=== PATIENT | male | born 1950 | race Caucasian/White ===

== ENCOUNTER 2016-10-13 21:08 | Inpatient (IN) | payer OTHER ==
[~2016-10-13] VITALS: Ht 182.9 cm; Wt 68.0 kg
--- NOTE | ~2016-10-13 | CNG ---
[facility] [place] [address] CYTO-NONGYN REPORT PROCEDURE Name: VISHAL BURKETT Room #: 315-P DIS IN M.R.#: [id number] Admission: 10/13/16 Date of : 54 Discharge: 10/16/16 Report #: [id number] Path Case #: [id number] CYTOPATHOLOGY REPORT COLLECTION DATE: 10/15/2016 RECEIVED DATE: 10/15/2016 SUBMITTING PHYS: Dr. Robert Patel OTHER PHYS: Dr. Amarjit John CLINICAL HISTORY: Right lung mass diagnosed yesterday. See also [id number]. SPECIMEN(S) RECEIVED: A.Bronchial brushing, RUL B.Bronchial brush rinse, RUL C. TBNA , lymph node 4R D.Bronchoalveolar lavage, RUL * * * * * * * * * * * * FINAL DIAGNOSIS: A. Bronchial brushing, RUL: - POSITIVE FOR MALIGNANCY. - SMALL CELL CARCINOMA. B. Bronchial brush rinse, RUL: - POSITIVE FOR MALIGNANCY. - SMALL CELL CARCINOMA. C. TBNA, lymph node 4R: - POSITIVE FOR MALIGNANCY. - SMALL CELL CARCINOMA. - NO CONVINCING BACKGROUND LYMPHOID TISSUE PRESENT. (SEE COMMENT) D. Bronchoalveolar lavage, RUL: - SUSPICIOUS FOR MALIGNANCY. - Clusters of highly atypical cells suspicious for small cell carcinoma. COMMENT: Properly controlled immunohistochemical stains are performed on the cell block of specimen C. (Block C1) AE1/AE3: tumor cells have perinuclear dot-like reactivity TTF-1: tumor cells reactive Synaptophysin: tumor cells reactive Within specimen C, no convincing background lymphoid tissue is present to confirm the presence of lymph node. Clinical, radiographic, and bronchoscopic correlation is required. Servicer slides of specimens A and C are co-reviewed with Dr. Annmarie De Paz. Please see also the bronchial biopsy showing small cell carcinoma ([id number]). The case is discussed with Dr. Jones [address] [address] CYTO-NONGYN REPORT PROCEDURE Name: VISHAL BURKETT Room #: 315-P [facility]#: [id number] Admission: 10/13/16 Date of : 54 Discharge: 10/16/16 Report #: [id number] Path Case #: [id number] Patel on 10/17/16 at approximately 12:30 PM. (CLW:; d/t: 10/17/16) PATHOLOGIST: Desi Perera M.D. REPORT ELECTRONICALLY SIGNED BY: Desi Perera M.D. DATE/TIME: 10/17/2016 16:15 * * * * * * * * * * * * GROSS PATHOLOGY: A. Bronchial brushing, RUL: The specimen is labeled "Vishal Burkett" and consists of four fixed slides. B. Bronchial brush rinse, RUL: The specimen is labeled "Aurelio, Vishal" and consists of a brush tip in fixative. One ThinPrep slide was prepared. C. TBNA , lymph node 4R: The specimen is labeled "Aurelio, Vishal" and consists of two fixed slides. Received by the Cytology Department is 40 ml of dark brown fluid in formalin a cell block only was prepared. (clt 10.16.2016) D. Bronchoalveolar lavage, RUL: The specimen is submitted unfixed, labeled "Aurelio, Vishal". Received by the Cytology Department is ten mL of cloudy red fluid. One ThinPrep slide was prepared. (clt 10.15.2016) DIESEL ENGINE SPECIALIST(S): LIANNA Wallace(ASCP) INITIAL CPT CODE(S): A; 38931 B; 31851 C; 32568, 53695, 14908, 69663, 95008 D; 43447 Professional services performed by [facility] at [facility] [address], [place] [address] Technical services performed by [facility] at [address] [place] [address]., [address], [place] [address]. [facility] [address] [place] [address], [address] [place] [address] PHONE: [phone] DIRECTOR: Tobias Pavon M.D. * * * END OF REPORT * * *
--- NOTE | ~2016-10-13 | EKG ---
[address] [address] ELECTROCARDIOGRAM REPORT Name: ALYSSIA BURKETT Room #: 315-P ADM IN M.R.#: [id number] Admission: 10/13/16 Attend Phys: Mustapha Bentley Discharge: Date of : 54 Report #: [id number] THIS REPORT FOR: //name// [facility] Test Date: 2016-10-14 Test Time: 11:31:30 Pat Name: ALYSSIA BURKETT Department: Room: 315 Gender: M House Mother: abrahan : 1950 Requested By: Adriane Frey Order Number: [id number] MD: Rc Pinto Measurements Intervals [place] Rate: 68 P: 51 RI: 145 QRS: -8 QRSD: 86 T: 58 QT: 396 QTc: 422 Interpretive Statements Sinus rhythm Probable left atrial enlargement Probable left ventricular hypertrophy No previous ECG available for comparison Electronically Signed On 10-14-2016 20:26:23 CDT by Rc Pinto [email or web address] <ELECTRONICALLY SIGNED> By: Rc Pinto MD 10/14/166 1131 30 Rc Pinto MD /CHEY
--- NOTE | ~2016-10-13 | HC ---
[facility] [place] [address] CONSULTATION Name: ALYSSIA BURKETT Room #: 315-P [facility] IN M.R.#: [id number] Admission: 10/13/16 Attend Phys: Amarjit John MD Discharge: 10/16/16 Date of : 54 Report #: [id number] THIS REPORT FOR: //name// CC: Amarjit John Primary Care Provider CHEIKH POPE DATE OF SERVICE: 10/14/2016 PULMONARY CONSULTATION REASON FOR CONSULTATION: Lung mass. CHIEF COMPLAINT: Chest pain. HISTORY OF PRESENT ILLNESS: Our group was asked to see the patient in consultation while hospitalized at [facility]. A pleasant 66-year-old male without any past pulmonary history, other than ongoing tobacco use, who presented to [facility] about one week ago with complaints of right-sided chest pain as well as some cough that had been nonproductive. Seen in the emergency department there and was found to have an abnormal exam and chest x-ray was thought to have pneumonia, placed on antibiotics and instructed to follow up with his primary care provider. Upon seeing his primary care provider, the patient had not been improving and what appeared to be a mediastinal mass found on the x-ray prompted an order of a CT scan of the chest. This was done on October 12, which revealed a mediastinal right upper lobe mass. The patient had ongoing chest pain, some weight loss of about 10 pounds over the last month and this prompted the patient to call his primary care provider because of poor pain control. He was instructed to present for admission and was seen in our emergency department. An x-ray confirmed a mediastinal mass, subsequently admitted for further evaluation and management of a severe chest pain. ALLERGIES: Include TRAMADOL, PROZAC and CHANTIX. PAST MEDICAL HISTORY: 1. History of hyperlipidemia. 2. Gout. 3. History of severe prostatitis, undergoing cystoscopy several years ago. 4. Chronic lower back pain. 5. Tobacco abuse. PAST SURGICAL HISTORY: Other than cystoscopy, none. OUTPATIENT MEDICATIONS: Include allopurinol, Protonix, atorvastatin, Ambien, aspirin and hydrocodone. [facility] [address] [place] [address] CONSULTATION Name: ALYSSIA BURKETT Room #: 315-P [facility] IN M.R.#: [id number] Admission: 10/13/16 Attend Phys: Amarjit John MD Discharge: 10/16/16 Date of : 54 Report #: [id number] SOCIAL HISTORY: Active smoker, smoking about a pack and a half a day. Currently retired; previously had worked on farms, doing farm work. No significant organic exposures in this regard. FAMILY HISTORY: Significant for a strong history of coronary artery disease. REVIEW OF SYSTEMS: CONSTITUTIONAL: Some mild weight loss of about 10 pounds over the last month and some occasional sweats. ENT: No upper respiratory congestion, rhinorrhea or dysphagia. CARDIOVASCULAR: Chest pain as described, mostly right-sided and in the lower chest. GASTROINTESTINAL: No nausea, vomiting, diarrhea, constipation or abdominal pain. GENITOURINARY: No dysuria, no frequency. History of prostatitis several years ago. INTEGUMENT: Denies any new rash. MUSCULOSKELETAL: No new joint pains or swelling. PHYSICAL EXAMINATION: VITAL SIGNS: Afebrile. Pulse 80s, respiratory rate 20, blood pressure 172/86 and oxygen saturation 95% on room air. GENERAL: This is a pleasant middle-aged male in no apparent distress. ENT: Edentulous upper palate. Mallampati 2 airway, no thrush. NECK: Supple. No lymphadenopathy. LUNGS: Diminished on the right with focal wheezes noted on the right. Respirations do not appear labored at rest. CARDIOVASCULAR: Heart regular. No murmurs noted. ABDOMEN: Soft, nontender. No masses, no hepatosplenomegaly. EXTREMITIES: Without edema. LABORATORY DATA: Sodium 143, potassium 3.4, chloride 101, bicarbonate 34, BUN 12, creatinine 0.7 and glucose 124. INR is 1.1. White blood cell count 14,000, hemoglobin 15, hematocrit 46 and platelet count 225,000. CT scan of the chest was reviewed, which revealed a very large mediastinal mass extending from the, what appears to be, thoracic inlet, all the way down to the right hilar area, involving the right upper lobe bronchus, which appears to be abruptly cut off by this mass. Pulmonary artery may be involved on the right side as well. No significant subcarinal or left hilar nodes were noted on this exam. Review of the right lower ribs does not reveal lesion that I can see either. Liver does not appear to have any lesions as well. There does appear to be some gallbladder wall thickening on CT, although not fully visualized. IMPRESSION: Mediastinal mass with right hilar involvement, probable right upper lobe airway involvement. This should be very minimal to bronchoscopy. However, [facility] [address] [place] [address] CONSULTATION Name: ALYSSIA BURKETT Room #: 315-P DIS IN Xavier.#: [id number] Admission: 10/13/16 Attend Phys: Amarjit John MD Discharge: 10/16/16 Date of : 54 Report #: [id number] given his chest pain and back pain, we cannot rule out the possibility that the patient may have some metastatic disease to favor aggressive evaluation with bronchoscopy and biopsy to make sure airways are not in jeopardy given focal wheezes as well as again a diagnosis of what appears to be maybe a small cell lung cancer based on its radiographic appearance, which may tend to be more aggressive. SUGGESTIONS: 1. Oncology evaluation pending as ordered by primary providers. 2. We will arrange for fiberoptic bronchoscopy tomorrow, with likely fine needle aspirates of the pretracheal area as well as endobronchial biopsies of the lesion that appears to involve the right upper lobe bronchus. We will request pathology for rapid onsite pathology of the cytology from the needle aspirates if obtained. Additional recommendations to follow. 3. We will need further staging workup prior to treatment interventions, which may include MRI of the head and total body PET scan. <ELECTRONICALLY SIGNED> By: Robert Patel MD 10/18/16 1133 1624 1248 Robert Patel MD /nt
--- NOTE | ~2016-10-13 | S ---
[facility] [place] [address] SURGICAL PATH RPT PROCEDURE Name: VISHAL BURKETT Room #: 315-P DIS IN M.R.#: [id number] Admission: 10/13/16 Date of : 54 Discharge: 10/16/16 Report #: [id number] Path Case #: [id number] PATHOLOGY REPORT COLLECTION DATE: 10/15/2016 RECEIVED DATE: 10/16/2016 SUBMITTING PHYS: Dr. Robert Patel OTHER PHYS: Dr. Amarjit John SPECIMEN(S) RECEIVED: A.RUL biopsy * * * * * * * * * * * * FINAL DIAGNOSIS: "RUL biopsy", bronchial biopsy: - SMALL CELL CARCINOMA. (SEE COMMENT) COMMENT: Sections show biopsy fragments of bronchial wall with involvement by a malignant neoplasm. The tumor cells are small to medium sized with hyperchromatic nuclei showing smudged nuclear chromatin, nuclear molding and significant crush artifact. Focal areas of coagulative necrosis are noted. Tumor cells infiltrate a desmoplastic stroma. Properly-controlled immunohistochemical stains are performed. Block A1: AE1/AE3: perinuclear dot-like reactivity; CD56: diffusely reactive; TTF-1: diffusely reactive; Synaptophysin: diffusely reactive; CD45: tumor cells non-reactive. Please see also the cytology specimen ([id number]). Clinical and radiographic correlation is recommended. Small Business Representative slides are co-reviewed with Dr. Annmarie De Paz. The case is discussed with Dr. Robert Patel on 10/17/16, at approximately 12:30 PM. (CLW:xavier; d/t: 10/17/2016) PATHOLOGIST: Desi Perera M.D. REPORT ELECTRONICALLY SIGNED BY: Desi Perera M.D. DATE/TIME: 10/17/2016 16:20 * * * * * * * * * * * * GROSS PATHOLOGY: Received in formalin labeled "Vishal Burkett, avelina RUL," are 7 segments of white to cano soft tissue measuring 1.6 x 0.2 x 0.2 cm in aggregate dimensions and ranging from 0.2 to 0.3 cm in maximum dimension. The specimen is submitted entirely in cassette A1.([facility]; [address] [place] [address] SURGICAL PATH RPT PROCEDURE Name: VISHAL BURKETT Room #: 315-P [facility] IN .R.#: [id number] Admission: 10/13/16 Date of : 54 Discharge: 10/16/16 Report #: [id number] Path Case #: [id number] 10/16/2016) CLINICAL HISTORY: Right lung mass diagnosed yesterday INITIAL CPT CODE(S): A; 49609, 37293, 17632, 49577, 19397, 95056 Professional services performed by [facility] at [facility] [address] [place] [address] Technical services performed by [facility] at [address] [place] [address]., [address], [place] [address]. [facility] [address] [place] [address] PHONE: [phone] DIRECTOR: Tobias Pavon M.D. * * * END OF REPORT * * *
--- NOTE | ~2016-10-13 | S ---
[facility] [address] [place] [address] SURGICAL PATH RPT PROCEDURE Name: ALYSSIA BURKETT Room #: 315-P ADM IN M.R.#: [id number] Admission: 10/13/16 Date of : 54 Discharge: Report #: [id number] Path Case #: [id number] PATHOLOGY REPORT DRAFT COLLECTION DATE: 10/15/2016 RECEIVED DATE: 10/15/2016 SPECIMEN(S) RECEIVED: STEVE Stoll 4R-TBNA
--- NOTE | ~2016-10-13 | EKG ---
[address] [address] ELECTROCARDIOGRAM REPORT Name: ALYSSIA BURKETT Room #: 315-P ADM IN M.R.#: [id number] Admission: 10/13/16 Attend Phys: Mustapha Bentley Discharge: Date of : 54 Report #: [id number] THIS REPORT FOR: //name// [facility] ED Test Date: 2016-10-13 Test Time: 21:31:54 Pat Name: ALYSSIA BURKETT Department: Room: 315 P Gender: M Clinical Trial Assistant: ADI : 1950 Requested By: Adriane Frey Order Number: [id number] MD: Rc Pinto Measurements Intervals [place] Rate: 78 P: 52 HI: 149 QRS: -21 QRSD: 80 T: 56 QT: 365 QTc: 416 Interpretive Statements Sinus rhythm Left atrial enlargement Borderline left axis deviation No previous ECG available for comparison Electronically Signed On 10-14-2016 20:20:19 CDT by Rc Pinto [email or web address] <ELECTRONICALLY SIGNED> By: Rc Pinto MD 10/14/162019 30 30 Rc Pinto MD /CHEY
--- NOTE | ~2016-10-13 | P ---
[facility] [place] [address] PROCEDURE REPORT Name: ALYSSIA BURKETT Room #: 315-P [facility] IN M.R.#: [id number] Admission: 10/13/16 Attend Phys: Amarjit John MD Discharge: 10/16/16 Date of : 54 Report #: [id number] THIS REPORT FOR: //name// CC: Amarjit POPE DATE OF SERVICE: 10/15/2016 PROCEDURE: Fiberoptic bronchoscopy with pretracheal needle aspirate with a 19 gauge fine needle through a standard bronchoscope and right upper lobe endobronchial biopsies and brushings as well as lavage in the right upper lobe. INDICATION: Mediastinal/right hilar mass, ASA classification class 2. PROCEDURE NOTATION: After discussing risks, benefits of planned procedure with the patient, he desired to proceed. After obtaining informed consent, he was brought to endoscopy in wharf lab[facility] 3 where he was placed on the fluoroscopy table and given 4% lidocaine nebulized to anesthetize the upper respiratory tract. Once accomplished, he received conscious sedation. Total 9 mg of Versed and 50 mcg of fentanyl were titrated during the procedure to provide adequate sedation. Bronchoscope was then passed through an oral biteblock until the vocal cords were visualized. The vocal cords moved appropriately both before and after procedure, 1% lidocaine was instilled in the vocal cords to provide topical anesthesia. Bronchoscope was then passed in the trachea, 1% lidocaine was instilled in the tracheobronchial tree bilaterally to provide topical anesthesia. Once complete, airways were surveyed. FINDINGS: Mainstem, lobar, segmental and subsegmental bronchi were explored as best as can be assessed. Left-sided structures appeared normal as did the trachea except for the trachea did have some edema to the anterior portion. Marie slightly splayed. Right upper lobe bronchus had significant endobronchial disease where there appeared to be tumor in all three of the major segmental bronchi in the right upper lobe. An initial attempt at 19 gauge needle was done in the pretracheal area with some difficulty due to bleeding and difficulty penetrating the airway. The endobronchial ultrasound device was not utilized due to lack of availability at this time. The needle was aborted at this time and airway was cleared. Bronchoscope was then advanced into the right upper lobe where several brushings and forceps biopsies were obtained and sent for histopathologic and cytologic tests. Bronchoscope was then pulled back to the trachea where again two 19-gauge needles were aspirated pretracheal area. Because of the patient's discomfort and tachypnea despite adequate sedation and lidocaine, procedure was completed with bronchial lavage in the right upper lobe. The patient tolerated well. No noted complications. Total blood loss about 15 mL. IMPRESSION: Pretracheal and right upper lobe mass, status post bronchoscopy [address] [address] PROCEDURE REPORT Name: ALYSSIA BURKETT Room #: 315-P DIS IN M.R.#: [id number] Admission: 10/13/16 Attend Phys: Amarjit John MD Discharge: 10/16/16 Date of : 54 Report #: [id number] with biopsies as outlined above. PLAN: Await histopathologic and cytologic tests. <ELECTRONICALLY SIGNED> By: Robert Patel MD 10/18/16 1133 1236 0420 Robert Patel MD /nt
[2016-10-13 21:09] VITALS: BP 190/95
[2016-10-13] MEDS ORDERED: ZYLOPRIM300 MG PO (22:08)
[2016-10-13] MEDS ORDERED: PROTONIX40 M1 PO (22:08)
[2016-10-13] MEDS ORDERED: ATORVASTATIN CA40 MG PO (22:09)
[2016-10-13] MEDS ORDERED: ASPIR 8181 MG PO (22:10)
[2016-10-13] MEDS ORDERED: AMBIEN 5 MG TABL5 M1 PO (22:10)
[2016-10-13] MEDS ORDERED: HYDROCODONE-APA1 TA1 PO (22:11)
[2016-10-13 22:30] LABS: HEMATOCRIT 48.3 % (42.0-52.0); HEMOGLOBIN 16.3 gm/dL (14.0-18.0); MCH 33.2 pg (26.0-34.0); MCHC 33.8 g/dL (28.0-37.0); MCV 98.1 fL (80.0-100.0); PLATELET COUNT 243 thou/uL (150-400); RBC 4.93 mil/uL (4.50-6.00); WBC 13.7 thou/uL (4.0-11.0)
[2016-10-13 22:43] LABS: CALCIUM 8.7 mg/dL (8.5-10.1); CREATININE 0.8 mg/dL (0.7-1.3)
[2016-10-13 22:44] LABS: MANUAL DIFF YES
[2016-10-13 22:46] LABS: APTT 24.5 Seconds (24.5-32.8); INR 1.1; PROTIME 11.3 Seconds (9.3-11.4)
[2016-10-13 23:01] VITALS: BP 170/84
[2016-10-13 23:01] LABS: ABSOLUTE NEUTROPHILS 12.7 thou/uL (1.4-8.2); TOTAL CELL COUNT 100
[2016-10-13 23:05] VITALS: BP 175/86
[2016-10-14 04:08] VITALS: BP 160/87
[2016-10-14 04:48] LABS: HEMATOCRIT 45.6 % (42.0-52.0); HEMOGLOBIN 15.4 gm/dL (14.0-18.0); MCH 32.8 pg (26.0-34.0); MCHC 33.7 g/dL (28.0-37.0); MCV 97.3 fL (80.0-100.0); RBC 4.69 mil/uL (4.50-6.00); RDW 15.7 % (10.5-14.5); WBC 13.6 thou/uL (4.0-11.0)
[2016-10-14 04:51] LABS: CALCIUM 8.6 mg/dL (8.5-10.1); CREATININE 0.7 mg/dL (0.7-1.3); POTASSIUM 3.4 mmol/L (3.5-5.1)
[2016-10-14 08:00] VITALS: BP 161/74
[2016-10-14 15:59] VITALS: BP 172/86
[2016-10-14 19:40] VITALS: BP 168/83
[2016-10-15 03:49] VITALS: BP 139/83
[2016-10-15 05:52] LABS: HEMATOCRIT 46.1 % (42.0-52.0); HEMOGLOBIN 15.2 gm/dL (14.0-18.0); MCH 32.3 pg (26.0-34.0); MCHC 32.9 g/dL (28.0-37.0); MCV 98.3 fL (80.0-100.0); RBC 4.69 mil/uL (4.50-6.00); RDW 16.1 % (10.5-14.5); WBC 17.6 thou/uL (4.0-11.0)
[2016-10-15 05:55] LABS: CALCIUM 8.9 mg/dL (8.5-10.1); CREATININE 0.8 mg/dL (0.7-1.3); POTASSIUM 3.4 mmol/L (3.5-5.1)
[2016-10-15 10:00] VITALS: BP 168/80
[2016-10-15 17:35] VITALS: BP 158/73
[2016-10-15 20:50] VITALS: BP 157/83
[2016-10-16 05:30] VITALS: BP 148/77
[2016-10-16 08:17] VITALS: BP 155/71
[2016-10-16] MEDS ORDERED: NICOTINE TRANSD21 M1 TRANSDERM (14:29)
[2016-10-16] MEDS ORDERED: FENTANYL PA50 MCG/HR TRANSDERM (14:31)
[2016-10-16] MEDS ORDERED: COLACE 100 MG100 MG PO (14:32)
[2016-10-16] MEDS ORDERED: OXYCODONE HCL15 MG PO (14:34)
[2016-10-16 14:47] VITALS: BP 155/71
== END 2016-10-16 14:59 | disposition home or self-care (01) | DRG 167 ==
LOC: ER 21:08 → 3N 21:49 → EROBS 21:49 → 3N 23:02
PROVIDERS: Emergency Medicine; Internal Medicine; Nurse Practitioner Family
PROC: 0B948ZX Drainage of Right Upper Lobe Bronchus, Via Natural or Artificial Opening Endoscopic, Diagnostic (ICD-10-PCS; principal; 2016-10-15)
PROC: 0BBC8ZX Excision of Right Upper Lung Lobe, Via Natural or Artificial Opening Endoscopic, Diagnostic (ICD-10-PCS; principal; 2016-10-15)
DX: C34.91 Malignant neoplasm of unspecified part of right bronchus or lung (principal); E44.1 Mild protein-calorie malnutrition; R22.2 Localized swelling, mass and lump, trunk; G89.29 Other chronic pain; M54.5 Low back pain; M10.9 Gout, unspecified; F17.210 Nicotine dependence, cigarettes, uncomplicated; J44.9 Chronic obstructive pulmonary disease, unspecified; E87.6 Hypokalemia; E78.5 Hyperlipidemia, unspecified; Z82.49 Family history of ischemic heart disease and other diseases of the circulatory system; Z79.82 Long term (current) use of aspirin; Z88.6 Allergy status to analgesic agent; Z88.8 Allergy status to other drugs, medicaments and biological substances
CPT/HCPCS: 10096

== ENCOUNTER → 2016-10-23 | Outpatient (CLI) | payer OTHER ==
[~2016-10-23] MED LIST: AMBIEN 5 MG TABL5 M1 PO; ASPIR 8181 MG PO; ATORVASTATIN CA40 MG PO; COLACE 100 MG100 MG PO; FENTANYL PA50 MCG/HR TRANSDERM; HYDROCODONE-APA1 TA1 PO; NICOTINE TRANSD21 M1 TRANSDERM; OXYCODONE HCL15 MG PO; PROTONIX40 M1 PO; ZYLOPRIM300 MG PO
[2016-10-23 10:12] LABS: CREATININE 0.6 mg/dL (0.7-1.3)
== END ==
LOC: MRI 09:13
PROVIDERS: Internal Medicine Pulmonary Disease
DX: C34.90 Malignant neoplasm of unspecified part of unspecified bronchus or lung (principal); C79.31 Secondary malignant neoplasm of brain; I63.9 Cerebral infarction, unspecified; G31.9 Degenerative disease of nervous system, unspecified

== ENCOUNTER → 2016-10-24 | Outpatient (CLI) | payer OTHER | LOC: PET 04:23 | DX: C34.91 Malignant neoplasm of unspecified part of right bronchus or lung (principal); R91.8 Other nonspecific abnormal finding of lung field ==